=== PATIENT | male | born 1980 | race Hispanic/Latino ===

== ENCOUNTER 2017-11-26 22:09 | Emergency (ER) | payer SELFPAY ==
[2017-11-27] MEDS ORDERED: Clindamycin/D5W 900 mg/50 ml Premix Bag ONE (00:12)
[2017-11-27] MEDS ORDERED: Lidocaine 1% w/Epinephrine 1:100K 20 ML VIAL ONE (00:27)
== END 2017-11-27 01:48 | disposition home or self-care (01) ==
LOC: ERS 22:09
DX: L02.212 Cutaneous abscess of back [any part, except buttock and flank] (principal); E11.9 Type 2 diabetes mellitus without complications
CPT/HCPCS: 10060; 96365; J2001; J3490

== ENCOUNTER 2019-10-17 12:51 | Outpatient (CLI) | payer BC ==
--- NOTE | 2019-10-17 13:07 | ULT ---
Bilateral renal ultrasound CLINICAL INDICATION: Renal Insufficiency COMPARISON: None FINDINGS: Right kidney: No solid mass, or hydronephrosis. Left kidney: No solid mass, or hydronephrosis. Urinary bladder: Normal IMPRESSION: Unremarkable exam.
== END 2019-10-17 12:52 | disposition home or self-care (01) ==
LOC: BICULT 12:51
PROVIDERS: ATTEND Internal Medicine Nephrology
DX: R80.9 Proteinuria, unspecified (principal)
CPT/HCPCS: 76770

== ENCOUNTER 2022-05-26 00:25 | Inpatient (IN) | payer BC, SELFPAY ==
[2022-05-26] MEDS ORDERED: Morphine 4 MG/ML VIAL ONE ×2 (00:48→02:21)
[2022-05-26] MEDS ORDERED: Ondansetron PF 4 MG/2 ML Vial ONE (00:48)
[2022-05-26 01:04] LABS: #Basophils 0.1 thou/uL (0.0-0.2); #Eosinphils 0.1 thou/uL (0.0-0.7); #Lymphocytes 1.8 thou/uL (1.20-3.40); #Monocytes 0.9 thou/uL (0.11-0.59); %Basophils 0.4 % (0.0-1.0); %Eosinophils 0.6 % (0.0-10.0); %Monocytes 5.3 % (0.0-10.0); %Neutrophils 83.8 % (42.0-75.0); Hemoglobin 14.8 g/dL (14.0-18.0); Mean Corpuscular HGB CONC 34.6 g/dL (32.0-36.0); Mean Corpuscular Hemoglobin 30.8 pg (27.0-31.0); Mean Corpuscular Volume 89.1 fL (78.0-98.0); Mean Platelet Volume 8.2 fL (7.4-10.4); Platelet Count 303 thou/uL (130-400); RBC Distribution Width 11.4 % (11.5-14.5); Red Blood Cell (RBC) Count 4.79 mill/uL (4.70-6.10); White Blood Cell (WBC) Count 17.9 thou/uL (4.8-10.8)
[2022-05-26 01:41] LABS: ALT (SGPT) 25 U/L (8-55); AST (SGOT) 18 U/L (5-34); Albumin 3.2 g/dL (3.5-5.0); Alkaline Phosphatase 91 U/L (40-110); Anion Gap 15 mmol/L (10-20); BUN (Urea Nitrogen) 26 mg/dL (8.9-20.6); Bilirubin, Total 0.7 mg/dL (0.2-1.2); Calc. Creatinine Clearance 0 mL/min (70-130); Carbon Dioxide 28 mmol/L (22-29); Chloride 92 mmol/L (98-107); Estimated GFR 45; Globulin 3.8 g/dL (2.4-3.5); Potassium 4.3 mmol/L (3.5-5.1); Sodium 131 mmol/L (136-145)
[2022-05-26 01:45] LABS: Calcium 9.1 mg/dL (7.8-10.44); Glucose 626 mg/dL (70-105)
[2022-05-26] MEDS ORDERED: Insulin Regular 300 UNITS/3 ML VIAL ONE (02:21)
[2022-05-26 02:48] LABS: CKMB 4.8 ng/mL (0-6.6)
[2022-05-26] MEDS ORDERED: Ketorolac Tromethamine 30 MG/ML VIAL ONE (03:58)
[2022-05-26] MEDS ORDERED: cefTRIAXone\\ROCEPHIN 1 GM VIAL ONE (05:55)
[2022-05-26] MEDS ORDERED: cefTRIAXone\\ROCEPHIN 2 GM VIAL ONE (05:57)
[2022-05-26 06:27] LABS: Glucose 459 mg/dL (70-105)
[2022-05-26 07:11] LABS: Troponin I 0.074 ng/mL (< 0.028)
[2022-05-26] MEDS ORDERED: Azithromycin 500 MG VIAL ONE (07:48)
[2022-05-26] MEDS ORDERED: Iopamidol 370 76% 100 ML VIAL ONE (09:05)
[2022-05-26] MEDS ORDERED: Ondansetron PF 4 MG/2 ML Vial IVP PRN (10:17)
[2022-05-26] MEDS ORDERED: Ondansetron ODT 4 MG TAB PO PRN (10:17)
[2022-05-26] MEDS ORDERED: Dextrose 50% Abboject 50 ML SYRINGE SLOW IVP PRN (10:19)
[2022-05-26] MEDS ORDERED: Dextrose 5% in Water 1,000 ML IV PRN (10:19)
[2022-05-26 10:23] LABS: Troponin I 0.067 ng/mL (< 0.028)
[2022-05-26] MEDS ORDERED: Morphine 2 MG/ML VIAL ONE (12:07)
[2022-05-26] MEDS ORDERED: Ondansetron ODT 4 MG TAB ONE (12:08)
[2022-05-26] MEDS ORDERED: HumaLOG 300 UNITS/3 ML VIAL ONE (12:08)
[2022-05-26] MEDS: Morphine 2 MG/ML VIAL SLOW IVP PRN ×2 (12:13→20:21)
[2022-05-26] MEDS: Insulin Glargine 30 UNITS/0.3 ML VIAL SC SCH (12:37)
[2022-05-26] MEDS: HumaLOG 300 UNITS/3 ML VIAL SC PRN ×3 (12:37→20:31)
[2022-05-26 19:26] VITALS: BMI 31.4
[2022-05-26] MEDS: Acetaminophen 325 MG TAB PO PRN (20:22)
[2022-05-27 04:26] LABS: #Lymphocytes 1.8 thou/uL (1.20-3.40); #Monocytes 1.3 thou/uL (0.11-0.59); #Neutrophils 15.7 thou/uL (1.40-6.50); %Basophils 0.2 % (0.0-1.0); %Eosinophils 0.1 % (0.0-10.0); %Lymphocytes 9.4 % (21.0-51.0); %Neutrophils 83.3 % (42.0-75.0); Hemoglobin 13.2 g/dL (14.0-18.0); Mean Corpuscular Hemoglobin 31.1 pg (27.0-31.0); Mean Corpuscular Volume 91.3 fL (78.0-98.0); Mean Platelet Volume 8.1 fL (7.4-10.4); Platelet Count 251 thou/uL (130-400); RBC Distribution Width 11.4 % (11.5-14.5); Red Blood Cell (RBC) Count 4.25 mill/uL (4.70-6.10); White Blood Cell (WBC) Count 18.9 thou/uL (4.8-10.8)
[2022-05-27 04:54] LABS: Anion Gap 13 mmol/L (10-20); BUN (Urea Nitrogen) 21 mg/dL (8.9-20.6); Calc. Creatinine Clearance 98 mL/min (70-130); Calcium 8.4 mg/dL (7.8-10.44); Carbon Dioxide 26 mmol/L (22-29); Chloride 101 mmol/L (98-107); Estimated GFR 61; Glucose 331 mg/dL (70-105); Potassium 3.7 mmol/L (3.5-5.1); Sodium 136 mmol/L (136-145)
[2022-05-27 04:55] LABS: Hemoglobin A1c Greater than 14.0 % (4.0-6.0)
[2022-05-27] MEDS ORDERED: cefTRIAXone\\ROCEPHIN 1 GM in Sodium Chloride 0.9% 100 ML IVPB SCH (06:00)
[2022-05-27] MEDS: HumaLOG 300 UNITS/3 ML VIAL SC PRN ×4 (06:05→20:37)
[2022-05-27] MEDS: Acetaminophen 325 MG TAB PO PRN (08:10)
[2022-05-27] MEDS: Enoxaparin Sodium 40 MG/0.4 ML SYRINGE SC SCH (08:10)
[2022-05-27] MEDS: Morphine 2 MG/ML VIAL SLOW IVP PRN (08:11)
[2022-05-27] MEDS: Insulin Glargine 30 UNITS/0.3 ML VIAL SC SCH ×2 (08:11→20:32)
[2022-05-27] MEDS: Azithromycin 500 MG in Sodium Chloride 0.9% 250 ML 250 ML IVPB SCH (09:43)
[2022-05-27 13:36] LABS: Legionella Urinary Ag Negative (Negative)
[2022-05-27 13:37] LABS: Strep pneumo Urine Ag NEGATIVE (NEGATIVE)
[2022-05-27] MEDS: Ketorolac Tromethamine 30 MG/ML VIAL IVP SCH ×2 (17:14→23:40)
[2022-05-27] MEDS ORDERED: Piperacillin/Tazobactam 3.375 GM in Sodium Chloride 0.9% 100 ML IVPB SCH ×2 (17:45→18:45)
[2022-05-27] MEDS ORDERED: guaiFENesin/Codeine 200 mg/20 mg 10 ml Cup PO PRN (17:46)
[2022-05-27] MEDS: HYDROcodone/Acetaminophen 10/325 mg Tablet PO PRN (20:31)
[2022-05-27] MEDS: Piperacillin/Tazobactam 3.375 GM in Sodium Chloride 0.9% 100 ML IVPB SCH (23:41)
[2022-05-28] MEDS: HumaLOG 300 UNITS/3 ML VIAL SC PRN ×4 (00:50→21:12)
[2022-05-28] MEDS: HYDROcodone/Acetaminophen 10/325 mg Tablet PO PRN ×4 (03:20→21:14)
[2022-05-28 07:04] LABS: Anion Gap 9 mmol/L (10-20); BUN (Urea Nitrogen) 22 mg/dL (8.9-20.6); Calc. Creatinine Clearance 90 mL/min (70-130); Calcium 8.1 mg/dL (7.8-10.44); Carbon Dioxide 28 mmol/L (22-29); Chloride 102 mmol/L (98-107); Estimated GFR 55; Glucose 264 mg/dL (70-105); Potassium 3.4 mmol/L (3.5-5.1); Sodium 136 mmol/L (136-145)
[2022-05-28 07:18] LABS: #Eosinphils 0.3 thou/uL (0.0-0.7); #Neutrophils 10.3 thou/uL (1.40-6.50); %Basophils 0.1 % (0.0-1.0); %Eosinophils 2.1 % (0.0-10.0); %Lymphocytes 14.8 % (21.0-51.0); %Monocytes 7.6 % (0.0-10.0); %Neutrophils 75.5 % (42.0-75.0); Hemoglobin 12.4 g/dL (14.0-18.0); Mean Corpuscular HGB CONC 33.1 g/dL (32.0-36.0); Mean Corpuscular Hemoglobin 30.2 pg (27.0-31.0); Mean Corpuscular Volume 91.2 fL (78.0-98.0); Mean Platelet Volume 8.4 fL (7.4-10.4); Platelet Count 232 thou/uL (130-400); RBC Distribution Width 11.2 % (11.5-14.5); Red Blood Cell (RBC) Count 4.12 mill/uL (4.70-6.10); White Blood Cell (WBC) Count 13.6 thou/uL (4.8-10.8)
[2022-05-28] MEDS: Ketorolac Tromethamine 30 MG/ML VIAL IVP SCH ×3 (07:28→17:02)
[2022-05-28] MEDS: Enoxaparin Sodium 40 MG/0.4 ML SYRINGE SC SCH (09:34)
[2022-05-28] MEDS: Azithromycin 500 MG in Sodium Chloride 0.9% 250 ML 250 ML IVPB SCH (09:35)
[2022-05-28] MEDS: Insulin Glargine 30 UNITS/0.3 ML VIAL SC SCH ×2 (09:35→21:13)
[2022-05-28] MEDS: Piperacillin/Tazobactam 3.375 GM in Sodium Chloride 0.9% 100 ML IVPB SCH ×2 (10:02→15:36)
[2022-05-28] MEDS: Labetalol HCl 100 MG/20 ML VIAL SLOW IVP PRN (21:15)
[2022-05-29] MEDS: Piperacillin/Tazobactam 3.375 GM in Sodium Chloride 0.9% 100 ML IVPB SCH ×3 (00:07→17:40)
[2022-05-29] MEDS: Ketorolac Tromethamine 30 MG/ML VIAL IVP SCH ×4 (00:08→17:40)
[2022-05-29 04:31] LABS: #Eosinphils 0.5 thou/uL (0.0-0.7); #Lymphocytes 2.9 thou/uL (1.20-3.40); #Neutrophils 8.3 thou/uL (1.40-6.50); %Basophils 0.2 % (0.0-1.0); %Monocytes 7.7 % (0.0-10.0); Hemoglobin 12.4 g/dL (14.0-18.0); Mean Corpuscular HGB CONC 33.2 g/dL (32.0-36.0); Mean Corpuscular Hemoglobin 30.8 pg (27.0-31.0); Mean Corpuscular Volume 92.6 fL (78.0-98.0); Platelet Count 295 thou/uL (130-400); RBC Distribution Width 11.4 % (11.5-14.5); Red Blood Cell (RBC) Count 4.02 mill/uL (4.70-6.10); White Blood Cell (WBC) Count 12.8 thou/uL (4.8-10.8)
[2022-05-29] MEDS: HYDROcodone/Acetaminophen 10/325 mg Tablet PO PRN (04:43)
[2022-05-29 04:54] LABS: Anion Gap 12 mmol/L (10-20); BUN (Urea Nitrogen) 20 mg/dL (8.9-20.6); Calc. Creatinine Clearance 88 mL/min (70-130); Calcium 8.4 mg/dL (7.8-10.44); Carbon Dioxide 29 mmol/L (22-29); Chloride 102 mmol/L (98-107); Estimated GFR 53; Glucose 245 mg/dL (70-105); Potassium 3.7 mmol/L (3.5-5.1); Sodium 139 mmol/L (136-145)
[2022-05-29] MEDS: Azithromycin 500 MG in Sodium Chloride 0.9% 250 ML 250 ML IVPB SCH (11:07)
[2022-05-29] MEDS: Enoxaparin Sodium 40 MG/0.4 ML SYRINGE SC SCH (11:10)
[2022-05-29] MEDS: Insulin Glargine 30 UNITS/0.3 ML VIAL SC SCH ×2 (11:10→20:38)
[2022-05-29] MEDS: Labetalol HCl 100 MG/20 ML VIAL SLOW IVP PRN (17:01)
[2022-05-29] MEDS: HumaLOG 300 UNITS/3 ML VIAL SC PRN (20:40)
[2022-05-30] MEDS: Ketorolac Tromethamine 30 MG/ML VIAL IVP SCH ×2 (00:06→06:10)
[2022-05-30] MEDS: Piperacillin/Tazobactam 3.375 GM in Sodium Chloride 0.9% 100 ML IVPB SCH ×2 (00:07→08:58)
[2022-05-30] MEDS: Labetalol HCl 100 MG/20 ML VIAL SLOW IVP PRN ×2 (00:09→09:25)
[2022-05-30 05:24] LABS: #Eosinphils 0.4 thou/uL (0.0-0.7); #Lymphocytes 2.5 thou/uL (1.20-3.40); #Monocytes 0.8 thou/uL (0.11-0.59); #Neutrophils 6.5 thou/uL (1.40-6.50); %Basophils 0.4 % (0.0-1.0); %Eosinophils 4.1 % (0.0-10.0); %Lymphocytes 24.2 % (21.0-51.0); %Monocytes 8.2 % (0.0-10.0); %Neutrophils 63.2 % (42.0-75.0); Hemoglobin 11.9 g/dL (14.0-18.0); Mean Corpuscular HGB CONC 33.5 g/dL (32.0-36.0); Mean Corpuscular Hemoglobin 30.6 pg (27.0-31.0); Mean Corpuscular Volume 91.3 fL (78.0-98.0); Mean Platelet Volume 7.5 fL (7.4-10.4); Platelet Count 341 thou/uL (130-400); RBC Distribution Width 11.2 % (11.5-14.5); Red Blood Cell (RBC) Count 3.87 mill/uL (4.70-6.10); White Blood Cell (WBC) Count 10.3 thou/uL (4.8-10.8)
[2022-05-30 05:42] LABS: Anion Gap 11 mmol/L (10-20); BUN (Urea Nitrogen) 16 mg/dL (8.9-20.6); Calc. Creatinine Clearance 106 mL/min (70-130); Calcium 8.7 mg/dL (7.8-10.44); Carbon Dioxide 30 mmol/L (22-29); Chloride 101 mmol/L (98-107); Estimated GFR 67; Glucose 162 mg/dL (70-105); Potassium 3.6 mmol/L (3.5-5.1); Sodium 138 mmol/L (136-145)
[2022-05-30] MEDS: HumaLOG 300 UNITS/3 ML VIAL SC PRN ×2 (06:11→11:10)
[2022-05-30] MEDS: Azithromycin 500 MG in Sodium Chloride 0.9% 250 ML 250 ML IVPB SCH (08:58)
[2022-05-30] MEDS: Insulin Glargine 30 UNITS/0.3 ML VIAL SC SCH (08:59)
[2022-05-30] MEDS: Enoxaparin Sodium 40 MG/0.4 ML SYRINGE SC SCH (08:59)
[2022-05-30 09:13] VITALS: BP 191/112; TEMP 97.7
== END 2022-05-30 11:41 | disposition home or self-care (01) | DRG 871 ==
LOC: SUATTDRO 00:25 → ERS 00:25 → ERHOLD 06:42 → 2NO 18:55 → MSONC 05-29 16:50
PROVIDERS: ADMIT Hospitalist; ATTEND Hospitalist
DX: A41.9 Sepsis, unspecified organism (principal); Z20.822 Contact with and (suspected) exposure to COVID-19; J69.0 Pneumonitis due to inhalation of food and vomit; J18.9 Pneumonia, unspecified organism; J96.01 Acute respiratory failure with hypoxia; N17.9 Acute kidney failure, unspecified; E11.65 Type 2 diabetes mellitus with hyperglycemia; R77.8 Other specified abnormalities of plasma proteins; Z28.310 Unvaccinated for COVID-19; Z91.14 Patient's other noncompliance with medication regimen
CPT/HCPCS: 36415; 36416; 71045; 71275; 80048; 80053; 82010; 82553; 83036; 83605; 84145; 84484; 85025; 85379; 87040; 87449; 87633; 87798; 87899; 93005; 94640; 96374; 96375; 96376; J0456; J0696; J1650; J1815; J1885; J2270; J2405; J2543; J3490; J7050; J7620; Q0162; Q9967; U0003; U0005

== ENCOUNTER 2023-09-21 09:46 | Outpatient (CLI) | payer BC | END 2023-09-21 09:47 | disposition home or self-care (01) | LOC: BICRAD 09:46 | PROVIDERS: ATTEND Orthopaedic Surgery | DX: S52.135A Nondisplaced fracture of neck of left radius, initial encounter for closed fracture (principal); S12.9XXD Fracture of neck, unspecified, subsequent encounter ==

== ENCOUNTER 2024-09-07 08:38 | Emergency (ER) | payer BC ==
[2024-09-07 09:26] LABS: #Basophils Less than 0.03 10x3/uL (0.0-0.2); %Basophils 0.3 % (0.0-1.0); %Eosinophils 2.2 % (0.0-10.0); %Lymphocytes 23.9 % (21.0-51.0); %Monocytes 4.7 % (0.0-10.0); %Neutrophils 68.3 % (42.0-75.0); Hematocrit 47.6 % (42.0-52.0); Hemoglobin 16.6 g/dL (14.0-18.0); Mean Corpuscular HGB CONC 34.9 g/dL (32.0-36.0); Mean Corpuscular Volume 83.1 fL (78.0-98.0); Mean Platelet Volume 10.7 fL (7.4-10.4); Platelet Count 275 10x3/uL (130-400); RBC Distribution Width 12.4 % (11.5-14.5); Red Blood Cell (RBC) Count 5.73 mill/uL (4.70-6.10)
[2024-09-07] MEDS ORDERED: Diazepam 10 MG/2 ML SYRINGE ONE (09:38)
[2024-09-07 09:58] LABS: ALT (SGPT) 28 U/L (8-55); AST (SGOT) 28 U/L (5-34); Albumin 1.9 g/dL (3.5-5.0); Alkaline Phosphatase 99 U/L (40-110); Anion Gap 13 mmol/L (10-20); BUN (Urea Nitrogen) 26 mg/dL (8.9-20.6); Bilirubin, Total 0.8 mg/dL (0.2-1.2); Calc. Creatinine Clearance 0 mL/min (70-130); Calcium 8.6 mg/dL (7.8-10.44); Carbon Dioxide 22 mmol/L (22-29); Chloride 104 mmol/L (98-107); Estimated GFR 38; Globulin 4.1 g/dL (2.4-3.5); Glucose 401 mg/dL (70-105); Potassium 3.4 mmol/L (3.5-5.1); Sodium 136 mmol/L (136-145)
[2024-09-07 10:02] LABS: Troponin I 0.214 ng/mL (< 0.028)
[2024-09-07] MEDS ORDERED: Aspirin Chewable 81 MG TAB ONE (10:04)
[2024-09-07] MEDS ORDERED: niCARdipine 25 MG/10 ML SDV ONE ×2 (10:50→13:50)
[2024-09-07 11:04] LABS: INR-International Normal Ratio 0.9; Prothrombin Time 12.1 sec (12.0-14.7)
[2024-09-07 11:05] LABS: PTT 25.8 sec (22.9-36.1)
[2024-09-07 11:09] LABS: Magnesium 1.7 mg/dL (1.6-2.6)
[2024-09-07] MEDS ORDERED: niMODipine 30 MG CAP PO SCH (11:15)
== END 2024-09-07 15:10 | disposition short-term general hospital (02) ==
LOC: ERS 08:38
DX: I60.9 Nontraumatic subarachnoid hemorrhage, unspecified (principal); I12.9 Hypertensive chronic kidney disease with stage 1 through stage 4 chronic kidney disease, or unspecified chronic kidney disease; E11.22 Type 2 diabetes mellitus with diabetic chronic kidney disease; N18.9 Chronic kidney disease, unspecified; R29.702 NIHSS score 2; Q27.30 Arteriovenous malformation, site unspecified
CPT/HCPCS: 36415; 70450; 70496; 70498; 71045; 72125; 80053; 82010; 83735; 83880; 84484; 85025; 85610; 85730; 93005; 96365; 96366; 96375; J3360

== ENCOUNTER 2025-09-18 08:08 | Outpatient (CLI) | payer BC | END 2025-09-18 08:09 | disposition home or self-care (01) | LOC: MRI 08:08 | PROVIDERS: ATTEND Radiology Radiation Oncology | DX: Q28.2 Arteriovenous malformation of cerebral vessels (principal); G93.6 Cerebral edema | CPT/HCPCS: 70553 ==